=== PATIENT | male | born 1995 | race Caucasian/White ===

== ENCOUNTER 2017-03-05 22:05 | Emergency (ER) | payer OTHER | END 2017-03-06 00:17 | disposition left against medical advice (07) | LOC: ED 22:05 | DX: Z53.21 Procedure and treatment not carried out due to patient leaving prior to being seen by health care provider (principal) ==

== ENCOUNTER 2017-09-30 06:15 | Emergency (ER) | payer OTHER ==
[~2017-09-30] VITALS: Ht 172.7 cm; Wt 72.6 kg
[2017-09-30 06:21] VITALS: BP 139/83; Ht 172.7 cm; Wt 72.6 kg
== END 2017-09-30 08:29 | disposition home or self-care (01) ==
LOC: ED 06:15
DX: B34.9 Viral infection, unspecified (principal)
CPT/HCPCS: 87804

== ENCOUNTER 2019-11-12 19:10 | Emergency (ER) | payer OTHER ==
[~2019-11-12] VITALS: Ht 172.7 cm; Wt 78.5 kg
[2019-11-12 19:19] VITALS: BP 114/78; Ht 172.7 cm; Wt 78.5 kg
== END 2019-11-12 19:41 | disposition home or self-care (01) ==
LOC: ED 19:10
DX: R06.02 Shortness of breath (principal); R55 Syncope and collapse

== ENCOUNTER 2020-03-01 07:26 | Emergency (ER) | payer OTHER ==
[~2020-03-01] VITALS: Ht 170.2 cm; Wt 74.8 kg
[2020-03-01 09:09] VITALS: BP 128/80
== END 2020-03-01 10:34 | disposition home or self-care (01) ==
LOC: ED 07:26
DX: K91.840 Postprocedural hemorrhage of a digestive system organ or structure following a digestive system procedure (principal); Z20.828 Contact with and (suspected) exposure to other viral communicable diseases
CPT/HCPCS: J2001; U0003-CS

== ENCOUNTER 2020-03-26 22:11 | Emergency (ER) | payer OTHER ==
[~2020-03-26] VITALS: Ht 162.6 cm; Wt 73.5 kg
[2020-03-26 22:23] VITALS: Ht 162.6 cm; Wt 73.5 kg
[2020-03-26 23:20] LABS: BASOPHIL % 0.9 % (0-2); PLATELET COUNT 254 x10^3mcL (130-400); RED CELL DISTRIBUTION WIDTH 12.7 % (11.5-14.5)
[2020-03-26 23:31] LABS: CALCIUM 8.9 mg/dL (8.5-10.1); CARBON DIOXIDE 32.6 mmol/L (21-32); CHLORIDE SERUM 99 mmol/L (98-107); CREATININE SERUM 1.1 mg/dL (0.7-1.3); GFR1 > 60 mL/min; GLUCOSE SERUM 105 mg/dL (74-106); POTASSIUM SERUM 3.3 mmol/L (3.5-5.1); SODIUM SERUM 136 mmol/L (136-145)
[2020-03-26 23:37] LABS: ALBUMIN 4.3 g/dL (3.4-5.0); ALKALINE PHOSPHATASE 80 U/L (46-116); ALT/SGPT 32 U/L (16-63); AST/SGOT 20 U/L (15-37); BILIRUBIN TOTAL 0.6 mg/dL (0.20-1.00); LACTIC DEHYDROGENASE (LDH) 191 U/L (100-190); TOTAL PROTEIN, SERUM 7.9 g/dL (6.4-8.2)
[2020-03-26 23:38] LABS: C REACTIVE PROTEIN < 0.2 mg/dL (<=0.9)
[2020-03-26 23:59] LABS: microscopic required? NO
[2020-03-27 00:17] LABS: UA SPECIFIC GRAVITY 1.025 (1.005-1.035); urine erythrocyte NEGATIVE (NEGATIVE)
[2020-03-27 00:40] LABS: AMPHETAMINE QUAL UR NONE DETECTED (See below)
[2020-03-27 02:00] VITALS: BP 114/76
== END 2020-03-27 02:00 | disposition home or self-care (01) ==
LOC: ED 22:11
PROVIDERS: Specialist
DX: J20.9 Acute bronchitis, unspecified (principal); Z20.828 Contact with and (suspected) exposure to other viral communicable diseases
CPT/HCPCS: 36600; 83880; 87804; Q0092; Q9967; U0003-CS